=== PATIENT | male | born 1955 | race Caucasian/White ===

== ENCOUNTER 2020-11-01 10:25 | Outpatient (REF) | payer OTHER, SELFPAY ==
[2020-11-01 10:44] LABS: COVID-19 Test Negative (Negative)
== END 2020-11-01 10:26 | disposition home or self-care (01) ==
LOC: HO.EMPCOV 10:25
PROVIDERS: PCP Physician Assistant; Visit Provider Internal Medicine
DX: Z20.828 Contact with and (suspected) exposure to other viral communicable diseases (principal)
CPT/HCPCS: 87635; C9803

== ENCOUNTER 2020-11-28 12:18 | Outpatient (REF) | payer OTHER, SELFPAY ==
[2020-11-28 12:44] LABS: COVID-19 Test Negative (Negative)
== END 2020-11-28 12:19 | disposition home or self-care (01) ==
LOC: HO.EMPCOV 12:18
PROVIDERS: Visit Provider Internal Medicine
DX: Z20.828 Contact with and (suspected) exposure to other viral communicable diseases (principal)
CPT/HCPCS: 87635; C9803

== ENCOUNTER 2020-12-16 06:21 | Outpatient (REF) | payer OTHER, SELFPAY ==
[2020-12-16 06:40] LABS: COVID-19 Test Negative (Negative)
== END 2020-12-16 06:22 | disposition home or self-care (01) ==
LOC: HO.EMPCOV 06:21
PROVIDERS: Visit Provider Internal Medicine
DX: Z20.822 Contact with and (suspected) exposure to COVID-19 (principal)
CPT/HCPCS: 36415; 87635; C9803

== ENCOUNTER 2021-05-06 12:19 | Outpatient (REF) | payer OTHER, SELFPAY ==
--- NOTE | ~2021-05-06 | XR_ITS ---
EXAMINATION: XR HAND, LEFT CLINICAL INFORMATION: Pain. COMPARISON: None TECHNIQUE: PA, lateral, and oblique views of the left hand. FINDINGS: There is mild bony demineralization. There is moderate osteoarthritic change of the interphalangeal joint of the thumb and of the second and third distal interphalangeal joints. There is mild osteoarthritic change of the first and third metacarpophalangeal joints, and moderate osteoarthritic change is seen of the second metacarpophalangeal joint. There is mild osteoarthritic change of the first carpometacarpal joint. No fracture or dislocation is seen. The proximal and distal carpal rows are intact. The soft tissue planes are unremarkable, without foreign body. XR/XR hand LT 2V IMPRESSION: There is multi-level focal osteoarthritic change of the left hand and wrist, as detailed.
== END 2021-05-06 12:20 | disposition home or self-care (01) ==
LOC: HO.XRAY 12:19
PROVIDERS: PCP Physician Assistant; Visit Provider Physician Assistant
DX: M79.642 Pain in left hand (principal)
CPT/HCPCS: 73120

== ENCOUNTER 2021-06-03 13:00 | Outpatient (RCR) | payer OTHER, SELFPAY ==
--- NOTE | 2021-06-10 08:42 | MHC.OT.DC ---
[address] [phone] F: [phone] Occupational Therapy Discharge Note Provider: Tree Nunez PA-C Diagnosis: Left Hand Pain due to OA Date of Evaluation: 05/15/21 Date of Discharge: 06/10/21 Treatments to Date: 6 Discharge Summary: Ganesh has been very motivated and overall good follow through, occasional triggering still when removing splint for exercises, still difficulty following full passive range. He was referred to [facility] and received cortisone injection and elected to discontinue OT after procedure. Electronically Signed By: Gris Roa OTR/L Please Sign and return to therapist, thank you for your referral.
== END 2021-06-10 08:42 | disposition home or self-care (01) ==
LOC: HO.OT 13:00
PROVIDERS: PCP Physician Assistant; Visit Provider Physician Assistant
DX: M79.642 Pain in left hand (principal)
CPT/HCPCS: 97035; 97110; 97140; 97165; 97760

== ENCOUNTER → 2021-06-04 10:53 | Outpatient (BNVA) | payer OTHER, SELFPAY | PROVIDERS: PCP Physician Assistant; Visit Provider Orthopaedic Surgery | DX: M65.332 Trigger finger, left middle finger (principal); M19.049 Primary osteoarthritis, unspecified hand | CPT/HCPCS: 20550; J1100 ==

== ENCOUNTER → 2021-10-21 08:43 | Outpatient (BNVA) | payer MEDICARE, SELFPAY | PROVIDERS: Visit Provider Orthopaedic Surgery | DX: M65.342 Trigger finger, left ring finger (principal); M65.332 Trigger finger, left middle finger; M19.042 Primary osteoarthritis, left hand | CPT/HCPCS: 20550; 99212; J1100 ==

== ENCOUNTER 2023-07-07 12:21 | Outpatient (AMB) | payer MEDICARE, SELFPAY ==
--- NOTE | 2023-07-07 12:48 | A.OFFVIS_ITS ---
Intake Intake Visit Reasons: new prob- right ring finger pain Intake Note: Ganesh is a 67 year old right hand dominant male who presents today for a evaluation for his right ring finger pain. Patient reports right ring finger is unable to bend and its causing him pain for several months. Having concerns of his left pinky finger is causing him sharp pain when he applies pressure on it. Denies numbness and tingling. Allergies No Known Allergies Allergy (Verified 07/07/23 12:54) HPI new prob- right ring finger pain HPI Details Ganesh is a 67 year old right hand dominant man who presents with complaints of right ring finger stiffness & pain. 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 He is also having painful catching of his left small finger. He says he has not been able to bend his right ring finger for several months and this is causing him pain. He also complains of pain in his left small finger pain. He is worried he has the beginnings of trigger fingers again He has a Hx of left middle & left ring trigger fingers, which resolved S/P injections by me in [facility] Surgical History History of repair of ACL History of total knee replacement (TKR) Family History Father CAD (coronary artery disease) Mother No problems noted. 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 Review of Systems Const All systems reviewed & are unremarkable except as noted in HPI and below Physical Exam Const General: cooperative, healthy appearing and no acute distress Orientation/consciousness: patient oriented x3 HEENT Head: Yes normocephalic and Yes atraumatic Eyes EOM: EOMs intact bilaterally Resp Effort & Inspection: normal respiratory effort and able to speak in complete sentences Cardio Jugular venous distension: no JVD Skin General skin exam: turgor normal Rashes: no rashes Neuro General: patient oriented x3 Extrem Other: Evaluation of Bilateral Upper Extremity: The patient is alert, oriented, and in no acute distress Neuro: Median, Ulnar, Radial nerves motor and sensory intact and sensation is normal to the tips of all digits Vascular: Cap refill brisk ROM: He can bring his thumb, index, middle, and small fingers closed to a fist and all digits into full extensiuon Tender over the a1 shira of the right ring and left small fingers Visible catching of the right ring finger Some stiffness in the right ring finger Skin: No lacerations or abrasions. General: No Ecchymosis. No Erythema or evidence of infection. Radiographs: 3 views of the right hand from 05/06/2021 viewed by me today in clinic. They show no fractures or dislocations. He has got some arthritic changes in the basal joint, most of the D IP joints as well as the 2nd MCP joint Psych Appearance: grossly normal Affect: normal affect Attitude: cooperative Office Procedures Fracture Care Details: No fracture, injection 81716 x 2 Fracture Billing Code: Fracture Billing Code Results Reviewed Results Reviewed: 07/07/23 13:17 Lidocaine HCl 1 % [Xylocaine 1 %] 2 ml .ROUTE .STK-MED ONE dexAMETHasone sod phosphate [Decadron] 4 mg .ROUTE .STK-MED ONE Assessment & Plan Assessment & Plan (1) Trigger finger, right ring finger: Code(s): M65.341 - Trigger finger, right ring finger (2) Trigger finger, left little finger: Code(s): M65.352 - Trigger finger, left little finger (3) DMII (diabetes mellitus, type 2): Code(s): E11.9 - Type 2 diabetes mellitus without complications Qualifiers: Diabetes mellitus complication status: without complication Diabetes mellitus chcf insulin use: without terminal superintendent use Qualified Code(s): E11.9 - Type 2 diabetes mellitus without complications Plan Assessment & Plan 1. Right ring finger trigger finger 2. Left small finger trigger finger I educated him about this condition I discussed operative and non-operative treatment options The patient would like to proceed with an injection Injection #1: The risks and benefits of a steroid injection including but not limited to risk of damage to blood vessels, nerves, tendons, infection, skin bleaching, failure to improve symptoms, increased pain, and possible need for further injections or other intervention were discussed with the patient and the patient wishes to proceed with the steroid injection. Once consent was obtained, I sterilely prepped the area over the A1 shira of the flexor tendon sheath of the Right ring. I then injected the flexor tendon sheath with a combination of 1 mL of dexamethasone (4mg/ml), and 1% lidocaine. The patient tolerated the procedure well with no complications. If the patient continues to have locking and catching 4-6 weeks following this injection, they may call to schedule appointment to discuss alternative treatment options Injection #2: The risks and benefits of a steroid injection including but not limited to risk of damage to blood vessels, nerves, tendons, infection, skin bleaching, failure to improve symptoms, increased pain, and possible need for further injections or other intervention were discussed with the patient and the patient wishes to proceed with the steroid injection. Once consent was obtained, I sterilely prepped the area over the A1 shira of the flexor tendon sheath of the Left small. I then injected the flexor tendon sheath with a combination of 1 mL of dexamethasone (4mg/ml), and 1% lidocaine. The patient tolerated the procedure well with no complications. If the patient continues to have locking and catching 4-6 weeks following this injection, they may call to schedule appointment to discuss alternative treatment options Follow-up prn Scribed for Huong Bird MD by Demetrio Slater, medical lab assistant, on 07/07/23 at 1:20 PM, EST. Coding Level of Care Code Est Pt Level 3 (80989) Diagnoses Trigger finger, right ring finger M65.341 Trigger finger, left little finger M65.352 DMII (diabetes mellitus, type 2) E11.9 Diabetes mellitus complication status: without complication Diabetes mellitus terminal superintendent insulin use: without terminal superintendent use CPT Codes Fracture Care - Fracture Billing Code: Fracture Billing Code ([id number])
== END 2023-07-07 13:40 | disposition home or self-care (01) ==
PROVIDERS: Visit Provider Orthopaedic Surgery
DX: M65.341 Trigger finger, right ring finger (principal); M65.352 Trigger finger, left little finger
CPT/HCPCS: 20550; 99213

== ENCOUNTER → 2023-07-07 12:21 | Outpatient (BNVA) | payer MEDICARE, SELFPAY | PROVIDERS: Visit Provider Orthopaedic Surgery | DX: M65.341 Trigger finger, right ring finger (principal); M65.352 Trigger finger, left little finger; E11.9 Type 2 diabetes mellitus without complications | CPT/HCPCS: 20550; 99212; J1100 ==

== ENCOUNTER 2025-10-24 10:23 | Outpatient (REF) | payer MEDICARE, SELFPAY ==
--- NOTE | ~2025-10-24 | XR_ITS ---
Exam: XR HAND 3 VIEWS BILATERAL, bilateral hand x-rays TECHNIQUE: AP, lateral, and oblique views upper extremity, bilateral hands INDICATION: M79.641 - Pain in right and left hand , Attention thumb and wrist; COMPARISON: None available. FINDINGS: RIGHT HAND: The DIP joint of the third digit is not well seen due to flexed joint. There are prominent marginal osteophytes. There are marginal osteophytes involving the second and fifth DIP joints. There is mild narrowing of the first MCP joint with small marginal osteophytes. IP joint of thumb demonstrates marginal osteophytes. MCP joint of thumb demonstrates small marginal osteophytes and moderate asymmetric joint space narrowing. The wrist is unremarkable. LEFT HAND: There is mild to moderate joint space and marginal osteophyte involving the second third DIP joints. There is moderate narrowing of the second and minimal narrowing of the third MCP joints with marginal osteophytes. There is minimal narrowing of the IP joint and MCP joints of the thumb with marginal osteophytes. Small marginal osteophytes are seen at the first CMC joint. The wrist is unremarkable. XR/XR Hand Bilat min 3v IMPRESSION: Right hand: Osteoarthritis, as described above Left hand: Osteoarthritis, as described above. Electronically signed by: Aditya Mcgee MD 10/24/2025 11:25 AM [facility]
== END 2025-10-24 10:24 | disposition home or self-care (01) ==
LOC: HO.HOSX 10:23
PROVIDERS: Visit Provider Orthopaedic Surgery
DX: M18.11 Unilateral primary osteoarthritis of first carpometacarpal joint, right hand (principal); E11.9 Type 2 diabetes mellitus without complications; M18.12 Unilateral primary osteoarthritis of first carpometacarpal joint, left hand; R20.0 Anesthesia of skin; R20.2 Paresthesia of skin
CPT/HCPCS: 20526; 73130; J1100; J2003

== ENCOUNTER 2025-10-24 10:23 | Outpatient (AMB) | payer BC, SELFPAY ==
--- NOTE | 2025-10-24 11:10 | A.OFFVIS_ITS ---
Vital Signs 10/24/25 11:14 Height 5 ft 7 in Weight 200 lb BMI 31.3 Intake Visit Reasons: New prob- Right thumb/ wrist pain Intake Note: Ganesh 69 yr old right hand dominant male who is retired , presents today for a new problem visit for his right thumb/wrist. States pain started about 5 months ago, no injury he can recall. Pain is mainly at base of his CMS joint and is triggered by pinching, gripping, twisting of wrist and lifting anything over 1 lb. Patient has tried OTC pain cream in the past with little to no relief. Also has numbness and tingling in his right hand only. Patient is also having the same pain in his left hand and he dropped the garbage bin lid on his left hand and has had pain between hi 2nd and 3rd MCP on his dorsum aspect of hand. Allergies No Known Allergies Allergy (Verified 10/24/25 11:14) HPI HPI New prob- Right thumb/ wrist pain: Details: Ganesh is a 69 year old right hand dominant man who presents with new complaints of right thumb & wrist pain. He complains of pain at the base of his right thumb, worse with pinching, gripping, or twisting activities. He says this has been present for ~5 months now. He also complains of similar pain in his left hand for the last several months. He says it began after he dropped a heavy garbage can lid on the dorsal aspect of his hand. He also complains of numbness in his right hand. Symptoms intermittent & occasional. He says he had bilateral carpal tunnel released 10+ years ago, with improvements in his symptoms following surgery He has an old mallet finger deformity of his right middle finger, which he says is from a childhood injury [facility] Surgical History History of repair of ACL History of total knee replacement (TKR) Family History Father CAD (coronary artery disease) Mother No problems noted. Social History Alcohol intake: current Alcohol intake frequency: a few times a month Current occupational status: employed and retired Current occupation: [employer] [address]/ rt hand Physical Exam Vital Signs: BMI result Body Mass Index 31.3 Extrem Other: Evaluation of Bilateral Upper Extremity: The patient is alert, oriented, and in no acute distress Neuro: Median, Ulnar, Radial nerves motor and sensory intact and sensation is normal to the tips of all digits Vascular: Cap refill brisk ROM: He can bring his thumb, index, middle, and small fingers closed to a fist and all digits into full extension Tender over the a1 shira of the right ring and left small fingers Visible catching of the right ring finger Some stiffness in the right ring finger Middle finger mallet deformity, DIP joint is held in ~45 degrees of flexion Most tender over the basal joint bilaterally, R>L Pos shoulder sign bilaterally Pos CMC grind on the right Radiographs: 3 views of the right hand were taken and viewed by me today in clinic. They show no fractures or dislocations. He has got some arthritic changes in the basal joint, with joint space narrowing, subchondral sclerosisi, and osteophyte formation. He also has arthritic changes in most of the DIP joints as well as the 2nd MCP joint Office Procedures AMB Fracture Care Details: No fracture, injection Fracture Billing Code: Fracture Billing Code Assessment & Plan Assessment & Plan (1) Arthritis of carpometacarpal (CMC) joint of right thumb: Code(s): M18.11 - Unilateral primary osteoarthritis of first carpometacarpal joint, right hand Category: Medical (2) DMII (diabetes mellitus, type 2): Code(s): E11.9 - Type 2 diabetes mellitus without complications Category: Medical Qualifiers: Diabetes mellitus complication status: without complication Diabetes mellitus continuous churn buttermaker insulin use: without continuous churn buttermaker use Qualified Code(s): E11.9 - Type 2 diabetes mellitus without complications (3) Numbness of right hand: Code(s): R20.0 - Anesthesia of skin Category: Medical (4) Arthritis of carpometacarpal (CMC) joint of left thumb: Code(s): M18.12 - Unilateral primary osteoarthritis of first carpometacarpal joint, left hand Category: Medical Plan Assessment & Plan 1. Right basal joint arthritis 2. Left basal joint arthritis, clinical New X-rays of his left thumb at next appointment I educated him about this condition I discussed treatment options The patient would like to proceed with an injection I discussed activity modification, they should limit or avoid any heavy or repetitive pinching or gripping activities He was fitted for bilateral comfort cool brace to wear with daily activity He should work on ROM exercises, and avoid any gripping or strengthening activities I discussed the use of assistive devices for daily activity Injection #1: The risks and benefits of a steroid injection including but not limited to risk of damage to blood vessels, nerve, tendon, infection, skin bleaching, persistent or worsening pain, and failure to improve symptoms were discussed with the patient and they wish to proceed with the steroid injection. Once consent was obtained the skin over the dorsum of the Right basal joint was sterilely prepped. The joint was then injected with a combination of 1 mL of dexamethasone (4mg/ml) and 1% plain Lidocaine. The patient appears to have tolerated the procedure well and with no complications. He had good early relief before leaving clinic today. He knows that they may not have another steroid injection into this joint for least 4 months. 3. Right hand numbness I educated them about carpal & cubital tunnel syndrome I ordered a NCS to assess for peripheral nerve compression He will follow up when completed for review 4. Right ring finger trigger finger, 5. Left small finger trigger finger, S/P injection on 07/07/23 Resolved Scribed for Huong Bird MD by Demetrio Slater, medical officer psychiatry, on 10/24/25 at 11:20 AM, EST. Orders: Orders NE nerve conduction velocity Today R20.0 - Anesthesia of skin, R20.2 - Paresthesia of skin NE electromyogram (EMG) Today R20.0 - Anesthesia of skin, R20.2 - Paresthesia of skin Coding Level of Care Code Est Pt Level 3 (16766) Diagnoses Arthritis of carpometacarpal (CMC) joint of right thumb M18.11 Type 2 diabetes mellitus without complication, without long-term current use of insulin E11.9 Diabetes mellitus complication status: without complication Diabetes mellitus jail insulin use: without jail use Numbness of right hand R20.0 Arthritis of carpometacarpal (CMC) joint of left thumb M18.12 CPT Codes Fracture Care - Fracture Billing Code: Fracture Billing Code ([id number])
[2025-10-24 11:14] VITALS: BMI 31.3
--- OUTSIDE RECORDS SUMMARY | 2025-10-24 12:18 | XMS_ITS | Patient Health Record ---
Author Organization [facility] Address [address] [place] [address] Care Team Providers Care Comfort Station Supervisor Name Role Phone Aliza(inactive) Eliel SWEENEY Primary Care Provider U Neel Swan Unavailable [phone] Reason For Referral No Information Medications Medication SIG (Take, Route, Frequency, Duration) Notes Start Date End Date Status Omeprazole 20 MG Capsule Delayed Release 1 capsule Orally Q AM; Duration: 30 day(s) 05/12/2013 Active Social History Social History Additional Details Category Social Info Options Details Miscellaneous: Marital status: engaged 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 Problems Problem Type SNOMED Code ICD Code Onset Dates Problem Status W/U Status Risk Notes Problem Chest pain (62163284) Chest pain, unspecified (786.50) Active confirmed Problem Gastroesophageal reflux disease (366568098) GERD (gastroesophag eal reflux disease) (530.81) Active confirmed Plan Of Treatment No Information Insurance Providers Payer Name Payer Address Payer Phone Subscriber Number Group Number Insured Name Patient Relationship to Insured Coverage Start Date Coverage End Date [employer] [address] [address] [place] [address] [id number] 5 DORENE WEEMS Self - patient is the insured Medical (General) History Medical History History ICD Code Denies GA,DM,CVA,Lung disease,renal dise ase Surgical History Surgery Date(Month/Year) left knee arthroscopy X3 right knee arthroscopy hernia repair X2
== END 2025-10-24 11:49 | disposition home or self-care (01) ==
PROVIDERS: Visit Provider Orthopaedic Surgery
DX: M18.11 Unilateral primary osteoarthritis of first carpometacarpal joint, right hand (principal); E11.9 Type 2 diabetes mellitus without complications; R20.0 Anesthesia of skin
CPT/HCPCS: 20526; 99213

== ENCOUNTER → 2025-10-24 10:30 | Outpatient (BNV) | payer MEDICARE, SELFPAY | PROVIDERS: Visit Provider Radiology Diagnostic Radiology | DX: M19.041 Primary osteoarthritis, right hand (principal); M19.042 Primary osteoarthritis, left hand | CPT/HCPCS: 73130 ==

== ENCOUNTER 2025-11-08 13:49 | Outpatient (REF) | payer MEDICARE, SELFPAY ==
--- NOTE | 2025-11-08 13:53 | EMG_ITS ---
Chief complaint: There is mild tingling on right 1st and 2nd digits. It is difficult for him to do a few things with the right arm. History of carpal tunnel surgery more than 10 years ago. Has had neck pain in the past but not aggravating him currently. Reason for referral: Evaluate for Carpal Tunnel Syndrome Referred by: Dr. Bird Procedure done: Right upper extremity NCS/EMG Precautions and/or limitations: None The limb temperature was monitored continuously and remained between 32-36 degrees C during the performance of the NCS. Nerve Conduction Studies Anti Sensory Summary Table ?Stim Site NR Onset (ms) Norm Onset (ms) Peak (ms) Norm Peak (ms) O-P Amp (?V) Norm O-P Amp Site1 Site2 Delta-0 (ms) Dist (cm) Joni (m/s) Norm Joni (m/s) Right Median Anti Sensory (2nd Digit) Wrist ? 3.2 4.0 <3.6 20.3 >10 Wrist 2nd Digit 3.2 14.0 44 Right Radial Anti Sensory (Thumb) Forearm ? 1.7 2.4 <3.1 43.6 Forearm Thumb 1.7 0.0 Right Ulnar Anti Sensory (5th Digit) Wrist ? 2.6 3.4 <3.7 25.4 >15.0 Wrist 5th Digit 2.6 14.0 54 Motor Summary Table ?Stim Site NR Onset (ms) Norm Onset (ms) O-P Amp (mV) Norm O-P Amp iAmp (mV) Amp (1st) (%) Site1 Site2 Delta-0 (ms) Dist (cm) Joni (m/s) Norm Joni (m/s) Right Median Motor (Abd Poll Brev) Wrist ? 4.3 <3.9 6.8 >4.5 8.0 100.0 Elbow Wrist 4.7 20.0 43 >45 Elbow ? 9.0 5.9 7.1 86.8 Right Ulnar Motor (Abd Dig Minimi) Wrist ? 3.0 <3.0 7.7 >5 8.9 100.0 B Elbow Wrist 4.1 19.0 46 >45 B Elbow ? 7.1 7.6 8.6 98.7 A Elbow B Elbow 1.8 10.0 56 >45 A Elbow ? 8.9 7.5 8.3 97.4 EMG ?Side Muscle Nerve Root Ins Act Fibs Psw Amp Dur Poly Recrt Int Pat Comment Right FlexCarRad Median C6-7 Nml Nml Nml Nml Nml 0 Nml Complete Right Biceps Musculocut C5-6 Nml Nml Nml Incr Incr 0 Nml Complete Right Triceps Radial C6-7-8 Nml Nml Nml Nml Nml 0 Nml Complete Right Deltoid Axillary C5-6 Nml Nml Nml Nml Nml 0 Nml Complete Right Abd Poll Brev Median C8-T1 Nml Nml Nml Nml Nml 0 Nml Complete Paraspinal EMG ?Side Muscle Nerve Root Ins Act Fibs Psw Comment Right Cervical Upper Rami Nml Nml Nml Right Cervical Mid Rami Nml Nml Nml Right Cervical Lower Rami Nml Nml Nml FINDINGS: Right median motor nerve showed prolonged distal latency, normal amplitude and slow conduction velocity. Right median sensory nerve showed prolonged peak latency. All other nerves tested were within normal. Concentric needle EMG was performed in selected muscles of the right upper extremity and cervical paraspinals. Study revealed signs of electric abnormalities as shown in the table above. Right biceps showed increased duration and amplitude. No denervation on right APB. No denervation cervical paraspinals. IMPRESSION: 1. This is an abnormal study. 2. There is electrodiagnostic evidence for right moderate-severe median neuropathy at the wrist, could be Carpal Tunnel Syndrome. 3. Possible right chronic C5-6 radiculopathy. 4. No evidence for ulnar neuropathy or brachial plexopathy. CLINICAL COMMENT: No previous EMG available for my review. Further clinical correlation recommended. Thank you for your kind referral. Debra Urena MD, DEVI Board Certified, [place] Board of [employer] and Rehabilitation (ABPMR) Board Certified, [place] Board of Electrodiagnostic Medicine (ABEM) CODIN 07809 x 1 extremity MTDD
--- OUTSIDE RECORDS SUMMARY | 2025-11-08 21:07 | XMS_ITS | Patient Health Record ---
Author Organization [facility] Address [address] [place] [address] Care Team Providers Care Bakeshop Cleaner Name Role Phone Aliza(inactive) Eliel SWEENEY Primary Care Provider U Neel Swan Unavailable [phone] Reason For Referral No Information Medications Medication SIG (Take, Route, Frequency, Duration) Notes Start Date End Date Status Omeprazole 20 MG Capsule Delayed Release 1 capsule Orally Q AM; Duration: 30 day(s) 05/12/2013 Active Social History Social History Additional Details Category Social Info Options Details Miscellaneous: Marital status: engaged 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 Problems Problem Type SNOMED Code ICD Code Onset Dates Problem Status W/U Status Risk Notes Problem Chest pain (97619148) Chest pain, unspecified (786.50) Active confirmed Problem Gastroesophageal reflux disease (389455810) GERD (gastroesophag eal reflux disease) (530.81) Active confirmed Plan Of Treatment No Information Insurance Providers Payer Name Payer Address Payer Phone Subscriber Number Group Number Insured Name Patient Relationship to Insured Coverage Start Date Coverage End Date [employer] [address] [address] [place] [address] [id number] 5 DORENE WEEMS Self - patient is the insured Medical (General) History Medical History History ICD Code Denies NM,DM,CVA,Lung disease,renal dise ase Surgical History Surgery Date(Month/Year) left knee arthroscopy X3 right knee arthroscopy hernia repair X2
== END 2025-11-08 13:50 | disposition home or self-care (01) ==
LOC: HO.NEURO 13:49
PROVIDERS: PCP Physician Assistant; Visit Provider Orthopaedic Surgery
DX: R20.0 Anesthesia of skin (principal); R20.2 Paresthesia of skin
CPT/HCPCS: 95886; 95909

== ENCOUNTER → 2025-11-08 13:53 | Outpatient (BNV) | payer MEDICARE, SELFPAY | PROVIDERS: PCP Physician Assistant; Visit Provider Physical Medicine & Rehabilitation | DX: G56.01 Carpal tunnel syndrome, right upper limb (principal); M54.12 Radiculopathy, cervical region | CPT/HCPCS: 95886; 95909 ==